=== PATIENT | female | born 1995 | race Caucasian/White ===

== ENCOUNTER → 2019-02-11 | Emergency (ER) | payer OTHER | END | disposition left against medical advice (07) | LOC: ER 20:23 | DX: Z53.20 Procedure and treatment not carried out because of patient's decision for unspecified reasons (principal) ==

== ENCOUNTER 2019-08-18 05:45 | Inpatient (IN) | payer OTHER ==
[~2019-08-18] VITALS: Ht 157.5 cm; Wt 3.2 kg
[~2019-08-18 05:45] MED LIST: PRENATAL TABLE1 EAC1 PO
== END 2019-08-22 17:42 | disposition home or self-care (01) | DRG 787 ==
LOC: OB/GYN 05:45 → LDR 05:45 → OB/GYN 08-19 04:35
PROVIDERS: ADMIT Obstetrics & Gynecology
PROC: 3E0P7VZ Introduction of Hormone into Female Reproductive, Via Natural or Artificial Opening (ICD-10-PCS; 2019-08-18)
PROC: 3E033VJ Introduction of Other Hormone into Peripheral Vein, Percutaneous Approach (ICD-10-PCS; 2019-08-18)
PROC: 4A1HXCZ Monitoring of Products of Conception, Cardiac Rate, External Approach (ICD-10-PCS; 2019-08-18)
PROC: 10D00Z1 Extraction of Products of Conception, Low, Open Approach (ICD-10-PCS; principal; 2019-08-19 02:00)
PROC: 30233N1 Transfusion of Nonautologous Red Blood Cells into Peripheral Vein, Percutaneous Approach (ICD-10-PCS; 2019-08-21)
DX: O82 Encounter for cesarean delivery without indication (principal); O72.2 Delayed and secondary postpartum hemorrhage; O61.0 Failed medical induction of labor; Z3A.39 39 weeks gestation of pregnancy; Z37.0 Single live birth; Z22.330 Carrier of Group B streptococcus

== ENCOUNTER 2019-08-31 14:14 | Emergency (ER) | payer OTHER ==
[~2019-08-31] VITALS: Ht 157.5 cm; Wt 65.8 kg
== END 2019-08-31 23:48 | disposition home or self-care (01) ==
LOC: ER 14:14
DX: N39.0 Urinary tract infection, site not specified (principal); R50.9 Fever, unspecified

== ENCOUNTER 2024-02-02 12:28 | Outpatient (CLI) | payer OTHER ==
[2024-02-02] MEDS ORDERED: RINGERS SOLUTION,LACTATED 1,000 ML IV SCH (12:30)
[2024-02-02 13:00] LABS: HEMATOCRIT 28.8 % (36.0-45.00); HEMOGLOBIN 10.1 g/dL (12.0-15.00); MEAN CELL VOLUME 90.2 fL (80.00-100.00); MEAN CORPUSCULAR HEMOGLOBIN 31.7 pg (27.00-32.0); MEAN CORPUSCULAR HGB CONC 35.2 g/dl (32.0-36.0); PLATELET COUNT 256 K/uL (150-450); RED CELL DISTRIBUTION WIDTH 12.9 % (11.5-14.5)
[2024-02-02 13:11] LABS: PH,URINE 6.5 (5.0-8.0); URINE APPEARANCE Clear; URINE BILIRRUBIN Negative (NEGATIVE); URINE BLOOD Negative; URINE COLOR Yellow; URINE GLUCOSE Negative (NEGATIVE); URINE LEUKOCYTE Negative; URINE NITRATE Negative; URINE PROTEIN Negative (NEGATIVE); URINE UROBILINOGEN 0.2 E.U./dl
[2024-02-02 13:15] LABS: URINE BACTERIA 3042.8 uL (0.0-1933); URINE EPITHELIAL CELLS 41.2 uL (0.0-38.8); URINE RBC 24.4 uL (0.0-20.8)
[2024-02-02 13:45] LABS: URINE SPERM FEW
[2024-02-02] MEDS ORDERED: CEFAZOLIN SODIUM 1,000 MG VIAL ONE (13:56)
[2024-02-02] MEDS ORDERED: CEFAZOLIN SODIUM 1,000 MG VIAL IV SCH (14:20)
== END 2024-02-02 21:32 | disposition home or self-care (01) ==
LOC: OBS/DEL 12:28
PROVIDERS: ATTEND Obstetrics & Gynecology
DX: O26.892 Other specified pregnancy related conditions, second trimester (principal); Z3A.21 21 weeks gestation of pregnancy